=== PATIENT | male | born 1995 | race American Indian/Alaskan Native ===

== ENCOUNTER 2018-06-18 00:35 | Emergency (ER) | payer OTHER ==
[2018-06-18 00:39] VITALS: BP 120/70
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
[2018-06-18] MEDS ORDERED: ULTRAM PO ONE (04:38)
[2018-06-18] MEDS ORDERED: ULTRAM ONE (04:41)
== END 2018-06-18 04:44 | disposition home or self-care (01) ==
LOC: ED 00:35
DX: S16.1XXA Strain of muscle, fascia and tendon at neck level, initial encounter (principal); S39.012A Strain of muscle, fascia and tendon of lower back, initial encounter; V89.2XXA Person injured in unspecified motor-vehicle accident, traffic, initial encounter; Y93.89 Activity, other specified; Y92.410 Unspecified street and highway as the place of occurrence of the external cause; Y99.8 Other external cause status
CPT/HCPCS: 99282